=== PATIENT | female | born 1985 | race Hispanic/Latino ===

== ENCOUNTER 2024-06-21 14:53 | Emergency (ER) | payer SELFPAY ==
[2024-06-21] VITALS (7 sets, daily range): BP systolic 86–102; BP diastolic 40–47
[~2024-06-21] VITALS: Ht 160 cm; Wt 55.0 kg
[2024-06-21 15:22] LABS: URINE BILIRUBIN - DIPSTICK Negative (NEGATIVE); URINE BLOOD DIPSTICK Negative (NEGATIVE); URINE GLUCOSE - DIPSTICK Negative (NEGATIVE); URINE KETONE Trace mg/dL (NEGATIVE); URINE LEUK ESTERASE Negative (NEGATIVE); URINE NITRITE - DIPSTICK Negative (Negative); URINE PH 5.5 (4.5-8.0); URINE PROTEIN - DIPSTICK 100 mg/dL (NEG-TRACE); URINE SPECIFIC GRAVITY >=1.030; URINE UROBILINOGEN - DIPSTICK 0.2 E.U./dL (0.2)
[2024-06-21 15:23] LABS: BASO% 0.4 % (0-3); EOS% 0.4 % (0-8); HEMOGLOBIN 13.3 g/dl (12.0-16.0); IMMATURE GRANULOCYTES 0.2 % (0.0-5.0); LYMPH% 25.3 % (15-41); MEAN CELL VOLUME 91.7 fL CALC (80.0-100.0); MEAN CORPUSCULAR HGB 30.5 pG CALC (26.0-32.0); MEAN CORPUSCULAR HGB CONC 33.3 g/dL CAL (32.0-36.0); MONO% 7.5 % (2-13); NEUT# 7.96 thou/uL (2.00-7.15); NEUT% 66.2 % (42-76); RED BLOOD COUNT 4.36 mill/uL (4.20-5.60)
[2024-06-21 15:23] LABS: URINE COLOR Yellow
[2024-06-21 15:31] LABS: URINE AMORPH SEDIMENT MANY hpf (NONE-FEW); URINE RBC 0-2 RBC/hpf (0-5); URINE SQUAMOUS EPITHELIAL CELL MODERATE EPI/hpf (0-FEW); URINE WBC 0-2 WBC/hpf (0-5)
[2024-06-21 15:37] LABS: ALBUMIN 4.3 g/dL (3.2-5.0); BILIRUBIN, TOTAL 0.5 mg/dL (0.02-1.3); CREATININE 0.5 mg/dL (0.5-1.0); POTASSIUM 3.7 mmol/l (3.5-5.1); TOTAL PROTEIN 7.6 g/dL (6.3-8.2)
[2024-06-21] MEDS ORDERED: PRENATAL MULTI1 CAP PO (17:54)
[2024-06-21] MEDS ORDERED: TYLENOL500 MG PO (17:54)
== END 2024-06-21 18:16 | disposition home or self-care (01) | DRG 833 ==
LOC: ED 14:53
PROVIDERS: Emergency Medicine
DX: O26.899 Other specified pregnancy related conditions, unspecified trimester (principal); R10.30 Lower abdominal pain, unspecified; O09.529 Supervision of elderly multigravida, unspecified trimester; Z3A.00 Weeks of gestation of pregnancy not specified